=== PATIENT | female | born 1985 | race Caucasian/White ===

== ENCOUNTER 2016-06-12 15:34 | Emergency (ER) | payer BC ==
[2016-06-12 15:42] VITALS: BP 119/74; PULSE 115; TEMP 98; BMI 40.2
--- NOTE | 2016-06-12 15:43 | PDOC ---
Rapid Medical Evaluation Chief Complaint: Pain Time Seen by Provider: 06/12/16 15:39 Medical Evaluation: Allergies Allergy/AdvReac Type Severity Reaction Status Date / Time metronidazole [From Flagyl] Allergy Verified 08/20/15 00:19 shellfish derived Allergy Verified 08/20/15 00:19 06/12/16 15:41 RME Note: I have performed a brief, in-person evaluation of this patient . This patient presents with CC: Nausea and vomiting and now diarrheax 1 day with abd pain with diarrhea Pertinent PE findings are: HR= 120, no fever I have ordered: U preg, UA The patient will proceed to ED for further evaluation. ,
[2016-06-12 16:15] LABS: BASOPHIL 0.2 % (0-2.0); EOSINOPHIL 0.4 % (0-4.5); MCH 29.7 pg (25.7-33.7); MCHC 33.9 g/dl (32.0-36.0); MEAN CELL VOLUME 87.5 fl (80-96); MEAN PLT VOLUME 8.2 fl (7.5-11.1); NEUTROPHILS 81.8 % (42.8-82.8); PLATELET COUNT 332 K/MM3 (134-434); RDW 13.6 % (11.6-15.6)
[2016-06-12 17:07] LABS: ALBUMIN 3.9 g/dl (3.4-5.0); AMYLASE 49 U/L (25-115); ANION GAP 5 (8-16); BILIRUBIN,TOTAL 0.7 mg/dL (0.2-1.0); CALCIUM 9.2 mg/dL (8.5-10.1); CO2 31 mmol/L (21-32); CREATININE 0.8 mg/dL (0.55-1.02); GLUCOSE,RANDOM 84 mg/dL (74-106); SGOT/AST 9 U/L (15-37); SGPT/ALT 21 U/L (12-78); TOT PROT 7.6 g/dl (6.4-8.2)
[2016-06-12 17:08] LABS: ALK PHOS 116 U/L (45-117)
[2016-06-12] MEDS ORDERED: SODIUM CHLORIDE 2,000 ML IV STA (17:08)
[2016-06-12] MEDS ORDERED: ONDANSETRON 4 MG/2 ML VIAL IVPUSH ONE (17:14)
[2016-06-12] MEDS ORDERED: ONDANSETRON 4 MG/2 ML VIAL ONE (17:23)
--- NOTE | 2016-06-12 17:49 | PDOC ---
History of Present Illness - General History Source: Patient Exam Limitations: No Limitations - History of Present Illness Initial Comments: 06/12/16 17:50 The patient is a 30 year old female with no significant past medical history who presents to the emergency department with abdominal pain for 1 day. The patient states she started having abdominal pain after eating a fast food meal yesterday. She also reports associated nausea, vomiting, and diarrhea since yesterday. She is not able to keep anything down. She denies any blood in the vomit or diarrhea. The patient denies any chest pain or shortness of breath. She denies any recent illness, fevers, or chills. <Alysha Clark - Last Filed: 06/12/16 17:49> <Rishabh Gold - Last Filed: 06/12/16 19:11> - General Chief Complaint: Pain Stated Complaint: NAUSEA, DIARRHEA, VOMITING Time Seen by Provider: 06/12/16 15:39 Past History <Alysha Clark - Last Filed: 06/12/16 17:49> - Psycho/Social/Smoking Cessation Hx Suicidal Ideation: No Smoking History: Never smoked Information on smoking cessation initiated: No Hx Alcohol Use: No Drug/Substance Use Hx: No Substance Use Type: None <Rishabh Gold - Last Filed: 06/12/16 19:11> - Past Medical History Allergies/Adverse Reactions: Allergies Allergy/AdvReac Type Severity Reaction Status Date / Time metronidazole [From Flagyl] Allergy Verified 08/20/15 00:19 shellfish derived Allergy Verified 08/20/15 00:19 Home Medications: Ambulatory Orders Clindamycin [Cleocin -] 300 mg PO Q6HPO #30 capsule 08/20/15 Ondansetron [Zofran Odt -] 4 mg SL TID #21 od.tablet 06/12/16 Oxycodone HCl/Acetaminophen [Percocet 5-325 mg Tablet] 1 - 2 tab PO Q6H #20 tab MDD 6 06/12/16 Review of Systems - Review of Systems Able to Perform ROS?: Yes Comments:: 06/12/16 17:50 GENERAL/CONSTITUTIONAL: No fever or chills. No weakness. HEAD, EYES, EARS, NOSE AND THROAT: No change in vision. No ear pain or discharge. No sore throat. CARDIOVASCULAR: No chest pain or shortness of breath. RESPIRATORY: No cough, wheezing, or hemoptysis. GASTROINTESTINAL: +Nausea, +vomiting, +diarrhea. No constipation. GENITOURINARY: No dysuria, frequency, or change in urination. MUSCULOSKELETAL: No joint or muscle swelling or pain. No neck or back pain. SKIN: No rash NEUROLOGIC: No headache, vertigo, loss of consciousness, or change in strength/ sensation. ENDOCRINE: No increased thirst. No abnormal weight change. HEMATOLOGIC/LYMPHATIC: No anemia, easy bleeding, or history of blood clots. ALLERGIC/IMMUNOLOGIC: No hives or skin allergy. <Alysha Clark - Last Filed: 06/12/16 17:49> *Physical Exam - Vital Signs Last Vital Signs Temp Pulse Resp BP Pulse Ox 98 F 115 H 18 119/74 100 06/12/16 15:40 06/12/16 15:40 06/12/16 15:40 06/12/16 15:40 06/12/16 15:40 - Physical Exam Comments: 06/12/16 17:50 GENERAL: Awake, alert, and fully oriented, in no acute distress HEAD: No signs of trauma EYES: PERRLA, EOMI, sclera anicteric, conjunctiva clear ENT: Auricles normal inspection, hearing grossly normal, nares patent, oropharynx clear without exudates. +Dry mucosa NECK: Normal ROM, supple, no lymphadenopathy, JVD, or masses LUNGS: Breath sounds equal, clear to auscultation bilaterally. No wheezes, and no crackles HEART: Regular rate and rhythm, normal S1 and S2, no murmurs, rubs or gallops ABDOMEN: Soft, nontender, normoactive bowel sounds. No guarding, no rebound. No masses EXTREMITIES: Normal range of motion, no edema. No clubbing or cyanosis. No cords, erythema, or tenderness NEUROLOGICAL: Cranial nerves II through XII grossly intact. Normal speech, normal gait SKIN: Warm, Dry, normal turgor, no rashes or lesions noted. <Alysha Clark - Last Filed: 06/12/16 17:49> - Vital Signs Last Vital Signs Temp Pulse Resp BP Pulse Ox 98 F 115 H 18 119/74 100 06/12/16 15:40 06/12/16 15:40 06/12/16 15:40 06/12/16 15:40 06/12/16 15:40 <Rishabh Gold - Last Filed: 06/12/16 19:11> ED Treatment Course - LABORATORY CBC & Chemistry Diagram: 06/12/16 15:46 06/12/16 15:46 - ADDITIONAL ORDERS Additional order review: Laboratory Results 06/12/16 06/12/16 15:46 15:46 Sodium 139 Potassium 4.2 Chloride 103 Carbon Dioxide 31 Anion Gap 5 L BUN 19 H Creatinine 0.8 Creat Clearance w eGFR > 60 Random Glucose 84 Calcium 9.2 Total Bilirubin 0.7 D AST 9 L D ALT 21 D Alkaline Phosphatase 116 D Total Protein 7.6 Albumin 3.9 Total Amylase 49 Lipase 128 Urine HCG, Qual Negative 06/12/16 15:46 RBC 5.17 D MCV 87.5 MCHC 33.9 RDW 13.6 MPV 8.2 Neutrophils % 81.8 D Lymphocytes % 12.5 D Monocytes % 5.1 Eosinophils % 0.4 Basophils % 0.2 - Medications Given in the ED: ED Medications Discontinued Medications Generic Name Dose Route Start Last Admin Trade Name Davidq PRN Reason Stop Dose Admin Ondansetron HCl 4 mg 06/12/16 17:14 06/12/16 17:30 Zofran Injection IVPUSH 06/12/16 17:15 4 mg ONCE ONE Administration <Alysha Clark - Last Filed: 06/12/16 17:49> - LABORATORY CBC & Chemistry Diagram: 06/12/16 15:46 06/12/16 15:46 - ADDITIONAL ORDERS Additional order review: Laboratory Results 06/12/16 06/12/16 15:46 15:46 Sodium 139 Potassium 4.2 Chloride 103 Carbon Dioxide 31 Anion Gap 5 L BUN 19 H Creatinine 0.8 Creat Clearance w eGFR > 60 Random Glucose 84 Calcium 9.2 Total Bilirubin 0.7 D AST 9 L D ALT 21 D Alkaline Phosphatase 116 D Total Protein 7.6 Albumin 3.9 Total Amylase 49 Lipase 128 Urine HCG, Qual Negative 06/12/16 15:46 RBC 5.17 D MCV 87.5 MCHC 33.9 RDW 13.6 MPV 8.2 Neutrophils % 81.8 D Lymphocytes % 12.5 D Monocytes % 5.1 Eosinophils % 0.4 Basophils % 0.2 - RADIOLOGY Radiology Studies Ordered: Category Date Time Status GALLBLADDER US [US] Stat Ultrasound 06/12/16 17:14 Ordered - Medications Given in the ED: ED Medications Discontinued Medications Generic Name Dose Route Start Last Admin Trade Name Patrick PRN Reason Stop Dose Admin Ondansetron HCl 4 mg 06/12/16 17:14 06/12/16 17:30 Zofran Injection IVPUSH 06/12/16 17:15 4 mg ONCE ONE Administration <Rishabh Gold - Last Filed: 06/12/16 19:11> *DC/Admit/Observation/Transfer - Attestations Scribe Attestion: 06/12/16 17:50 Documentation prepared by Alysha Clark, acting as medical director occupational health for Rishabh Gold DO. <Alysha Clark - Last Filed: 06/12/16 17:49> - Attestations Physician Attestion: 06/12/16 17:49 I, Dr. Rishabh Gold, attest that this document has been prepared under my direction and personally reviewed by me in its entirety. I further attest, that it accurately reflects all work, treatment, procedures and medical decision -making performed by me. <Rishabh Gold - Last Filed: 06/12/16 19:11> Diagnosis at time of Disposition: Calculus of gallbladder - Discharge Dispostion Disposition: HOME Condition at time of disposition: Good - Prescriptions Prescriptions: Oxycodone HCl/Acetaminophen [Percocet 5-325 mg Tablet] 1 - 2 tab PO Q6H #20 tab MDD 6 Ondansetron [Zofran Odt -] 4 mg SL TID #21 od.tablet - Patient Instructions Printed Discharge Instructions: DI for Viral Gastroenteritis -- Adult, DI for Gallstones - Post Discharge Activity Work/School Note: Back to Work
[2016-06-12 17:54] LABS: PH,URINE 6.5 (5.0-8.0); URINE APPEARANCE CLEAR; URINE BILIRUBIN NEGATIVE (NEGATIVE); URINE BLOOD NEGATIVE (NEGATIVE); URINE COLOR LT. YELLOW; URINE GLUCOSE (UA) NEGATIVE (NEGATIVE); URINE KETONE NEGATIVE (NEGATIVE); URINE LEUK ESTERASE NEGATIVE (NEGATIVE); URINE NITRITE NEGATIVE (NEGATIVE); URINE PROTEIN NEGATIVE (NEGATIVE); URINE UROBILINOGEN 0.2 E.U/dl E.U./dl (0.2-1.0)
== END 2016-06-12 19:10 | disposition home or self-care (01) ==
LOC: JER 15:34
PROC: 3E033GC Introduction of Other Therapeutic Substance into Peripheral Vein, Percutaneous Approach (ICD-10-PCS; principal; 2016-06-12)
DX: K80.20 Calculus of gallbladder without cholecystitis without obstruction (principal)
CPT/HCPCS: 36415; 76705-TC; 80053; 81003; 82150; 83690; 84703; 85025; 99283-25

== ENCOUNTER 2019-09-19 16:54 | Emergency (ER) | payer BC ==
[2019-09-19 17:03] VITALS: BP 118/75; PULSE 114; TEMP 98.3; BMI 49.4
== END 2019-09-19 18:05 | disposition home or self-care (01) ==
LOC: JERFT 16:54
DX: T59.91XA Toxic effect of unspecified gases, fumes and vapors, accidental (unintentional), initial encounter (principal)
CPT/HCPCS: 82375; 99284-25

== ENCOUNTER 2019-12-15 04:08 | Emergency (ER) | payer BC ==
[2019-12-15 04:18] VITALS: BMI 52.1
[2019-12-15] MEDS ORDERED: morphine CARPU-JECT 4 MG/1 ML DISP.SYRIN IVPUSH ONE (04:31)
[2019-12-15] MEDS ORDERED: ONDANSETRON 4 MG/2 ML VIAL IVPUSH ONE (04:31)
[2019-12-15] MEDS ORDERED: SODIUM CHLORIDE 0.9% 500 ML INFUS.BAG IV ONE (04:32)
[2019-12-15] MEDS ORDERED: morphine SULFATE 4 MG/ML VIAL ONE (04:35)
[2019-12-15] MEDS ORDERED: KETOROLAC TROMETHAMINE 15 MG/ML VIAL IM ONE (04:43)
--- NOTE | 2019-12-15 04:43 | PDOC ---
History of Present Illness - General Chief Complaint: Pain Stated Complaint: VOMITING,PAIN Time Seen by Provider: 12/15/19 04:17 - History of Present Illness Initial Comments: 12/15/19 04:33 HPI 34y/o F hx of asthma, IBS, kidney stones s/p right ureteral stent placement yesterday, presents to the ED with persistent nausea and vomiting. Pt had nausea while at hospital and was given zofran while in the hospital, and discharged with pain medications. Pt reports nausea has been persistent since then, and she has been unable to take her percocet because of the vomiting. She endorses: right flank pain, hematuria (as expected after procedure) denies: fevers, chills, chest pain, shortness of breath, lightheadedness, PMHx: as noted above ROS: as noted SHx: Denies Etoh, IVDA, tobacco use Allergies: NKDA ROS: GENERAL/CONSTITUTIONAL: No fever or chills. No weakness. HEAD, EYES, EARS, NOSE AND THROAT: No change in vision. No ear pain or discharge. No sore throat. CARDIOVASCULAR: No chest pain or shortness of breath RESPIRATORY: No cough, wheezing, or hemoptysis. GASTROINTESTINAL: No nausea, vomiting, diarrhea or constipation. GENITOURINARY: No dysuria, frequency, or change in urination. MUSCULOSKELETAL: No joint or muscle swelling or pain. No neck or back pain. SKIN: No rash NEUROLOGIC: No headache, vertigo, loss of consciousness, or change in strength/sensation. ENDOCRINE: No increased thirst. No abnormal weight change HEMATOLOGIC/LYMPHATIC: No anemia, easy bleeding, or history of blood clots. ALLERGIC/IMMUNOLOGIC: No hives or skin allergy. PE: GENERAL: Awake, alert, and fully oriented, in no acute distress HEAD: No signs of trauma, normocephalic, atraumatic EYES: PERRLA, EOMI, sclera anicteric, conjunctiva clear ENT: Auricles normal inspection, hearing grossly normal, nares patent, oropharynx clear without exudates. Moist mucosa NECK: Normal ROM, supple, no lymphadenopathy, JVD, or masses LUNGS: No distress, speaks full sentences, clear to auscultation bilaterally HEART: Regular rate and rhythm, normal S1 and S2, no murmurs, rubs or gallops, peripheral pulses normal and equal bilaterally. ABDOMEN: Soft,right flank pain. normoactive bowel sounds. No guarding, no r ebound. No masses EXTREMITIES : Normal inspection, Normal range of motion, no edema. No clubbing or cyanosis NEUROLOGICAL: Cranial nerves II through XII grossly intact. Normal speech, normal gait, no focal sensorimotor deficits SKIN: Warm, Dry, normal turgor, no rashes or lesions noted MDM 34y/o F hx of asthma, IBS, kidney stones s/p right ureteral stent placement yesterday, presents to the ED with persistent nausea and vomiting. DDx including but not limited to: nausea secondary to stent placement. Workup: basic labs, kub [place]: zofran, toradol, iv fluids u preg negative labs unremarkable KUB pending pt feeling better after toradol. not actively vomiting in the ED. ED course urology consult: dr. coffman covering for dr. luna: kub, fluids, anti-emetics. follow up with them upon d/c pt signed out to dr. oliveira. Past History - Medical History Allergies/Adverse Reactions: Allergies Allergy/AdvReac Type Severity Reaction Status Date / Time adhesive tape Allergy Verified 12/15/19 04:18 metronidazole [From Flagyl] Allergy Verified 12/15/19 04:18 shellfish derived Allergy Verified 12/15/19 04:18 Home Medications: Ambulatory Orders Clindamycin [Cleocin -] 300 mg PO Q6HPO #30 capsule 08/20/15 Ondansetron [Zofran Odt -] 4 mg SL TID #21 od.tablet 06/12/16 Oxycodone HCl/Acetaminophen [Percocet 5-325 mg Tablet] 1 - 2 tab PO Q6H #20 tab MDD 6 06/12/16 Ondansetron [Zofran *Odt*] 4 mg SL Q4H PRN #24 od.tablet 12/15/19 COPD: No - Surgical History Cholecystectomy: Yes - Reproductive History Is Patient Now?: No - Psycho-Social/Smoking History Smoking History: Never smoked Have you smoked in the past 12 months: No Information on smoking cessation initiated: No - Substance Abuse Hx (Audit-C & DAST Scrn) How often the patient has a drink containing alcohol: Never Score: In Men: 4 or > Positive; In Women: 3 or > Positive: 0 Screen Result (Pos requires Nsg. Audit-10AR): Negative In the last yr the pt used illegal drug/Rx for NonMed reason: No Score: Yes response is considered Positive: 0 Screen Result (Positive result requires Nsg. DAST-10): Negative *Physical Exam - Vital Signs Last Vital Signs Temp Pulse Resp BP Pulse Ox 107 H 20 116/61 99 12/15/19 04:11 12/15/19 04:11 12/15/19 04:11 12/15/19 04:11 ED Treatment Course - LABORATORY CBC & Chemistry Diagram: 12/15/19 04:35 12/15/19 04:35 - RADIOLOGY Radiology Studies Ordered: Category Date Time Status KUB (KID UR & BLAD) [RAD] Stat Radiology 12/15/19 04:31 Ordered Discharge - Discharge Information Problems reviewed: Yes Clinical Impression/Diagnosis: Vomiting Qualifiers: Vomiting type: unspecified Vomiting Intractability: unspecified Nausea presence: with nausea Qualified Code(s): R11.2 - Nausea with vomiting, unspeci fied Condition: Improved Disposition: HOME - Additional Discharge Information Prescriptions: Ondansetron [Zofran *Odt*] 4 mg SL Q4H PRN #24 od.tablet PRN Reason: nausea - Follow up/Referral - Patient Discharge Instructions Patient Printed Discharge Instructions: Nausea and Vomiting-Adult, DI for Ureteral Stent Placement Additional Instructions: it is common to have blood in the urine after your procedure. It may be pink or red. If you have significant amount of clots in urine, difficulty urinating or inability to urinate inform your doctor immediately. Drink plenty of water. Do not perform strenuous activities until you are cleared by your doctor. follow up with your urologist Dr. Gamez after your discharge. take the medication prescribed to you as indicated. - Post Discharge Activity
[2019-12-15 04:45] LABS: BASO % 0.1 % (0-2.0); EOS % 0.2 % (0-4.5); HEMATOCRIT 42.3 % (32.4-45.2); HEMOGLOBIN 14.6 GM/dL (10.7-15.3); LYMPH % 6.6 % (8-40); MCH 30.4 pg (25.7-33.7); MCHC 34.5 g/dl (32.0-36.0); MEAN CELL VOLUME 88.3 fl (80-96); MEAN PLT VOLUME 8.5 fl (7.5-11.1); MONO % 3.1 % (3.8-10.2); PLATELET COUNT 362 K/MM3 (134-434); RBC 4.79 M/mm3 (3.60-5.2); RDW 13.6 % (11.6-15.6); WHITE BLOOD COUNT 11.6 K/mm3 (4.0-10.0)
[2019-12-15] MEDS ORDERED: KETOROLAC TROMETHAMINE 15 MG/ML VIAL ONE (04:45)
[2019-12-15] MEDS ORDERED: KETOROLAC TROMETHAMINE 30 MG/1 ML VIAL IVPUSH ONE (04:45)
--- NOTE | 2019-12-15 04:52 | PDOC ---
Attending Attestation - Resident Resident Name: EsequielToanGarciaOnelbre - ED Attending Attestation I have performed the following: I have examined & evaluated the patient, The case was reviewed & discussed with the resident, I agree w/resident's findings & plan, Exceptions are as noted - HPI HPI: 12/15/19 04:45 34 yo F h/o R ureteral stent placed ~12 hours prior to presentation p/w n/v since the procedure. [facility] and reports she was discharged in the evening after her nausea and vomiting improved. States shortly after she returned home the n/v returned and since has not been able to tolerate PO. Reports she is urinating normally but still has small amount of blood in the urine which she was told was normal. - Physicial Exam PE: 12/15/19 04:47 General: well appearing Abdomen: obese limiting exam, soft, nt, no rebound no guarding Back: mild R CVA tenderness - Medical Decision Making 12/15/19 04:49 34 yo F with vomiting s/p ureteral stent placement. Case discussed with patient's covering urologist who suspects normal post-op reaction and recommends KUB to confirm stent placement, IVF, pain control and antiemetic and patient can f/u with urologist upon discharge from the ED. Plan: -KUB -IVF -pain control as needed -zofran -reassess, if patient tolerating PO and stent does not appear to be misplaced on KUB will d/c and patient to f/u with after discharge This clinical encounter is taking place during a federal and state health care emergency attributable to the novel [place] Virus pandemic. The [employer] of the Department of Health and Human Services has declared, pursuant to the Public Health Service Act 319F-3 (42 U.S[place]C. 247d-6d), that a covered persons activities related to medical countermeasures against COVID-19 will be immune from liability under Federal and State law. Discharge - Discharge Information Problems reviewed: Yes Clinical Impression/Diagnosis: Vomiting Qualifiers: Vomiting type: unspecified Vomiting Intractability: unspecified Nausea presence: with nausea Qualified Code(s): R11.2 - Nausea with vomiting, unspecified Condition: Improved Disposition: HOME - Additional Discharge Information Prescriptions: Ondansetron [Zofran *Odt*] 4 mg SL Q4H PRN #24 od.tablet PRN Reason: nausea - Follow up/Referral - Patient Discharge Instructions Patient Printed Discharge Instructions: Nausea and Vomiting-Adult, DI for Ur eteral Stent Placement Additional Instructions: it is common to have blood in the urine after your procedure. It may be pink or red. If you have significant amount of clots in urine, difficulty urinating or inability to urinate inform your doctor immediately. Drink plenty of water. Do not perform strenuous activities until you are cleared by your doctor. follow up with your urologist Dr. Gamez after your discharge. take the medication prescribed to you as indicated. - Post Discharge Activity
[2019-12-15 05:15] LABS: BLOOD UREA NITROGEN 15.2 mg/dL (7-18); CALCIUM 9.7 mg/dL (8.5-10.1); CREATININE 0.8 mg/dL (0.55-1.3); POTASSIUM 4.6 mmol/L (3.5-5.1)
--- NOTE | 2019-12-15 07:52 | PDOC ---
*Physical Exam - Vital Signs Last Vital Signs Temp Pulse Resp BP Pulse Ox 98.6 F 107 H 20 116/61 99 12/15/19 04:11 12/15/19 04:11 12/15/19 04:11 12/15/19 04:11 12/15/19 04:11 - Physical Exam 12/15/19 07:51 Accepted patient from night team at sign out. Comfortable in bed, not in pain, no nausea, tolerating PO. Dispo pending KUB results KUB: 2 views of the abdomen reveal a nonspecific bowel pattern. There is a right ureteral stent with proximal end in the right renal pelvis and distal end in the bladder. The right upper quadrant clips. Free air or pneumatosis is not seen. There is no sign of organomegaly or calcifications of significance. Correlation recommended. Repeat HR 95. Patient states she "runs tachy" and normal for her is in 100s DC home. She will call her surgeon today for f/u 12/15/19 08:10 12/15/19 08:12 ED Treatment Course - LABORATORY CBC & Chemistry Diagram: 12/15/19 04:35 12/15/19 04:35 - ADDITIONAL ORDERS Additional order review: Laboratory Results 12/15/19 12/15/19 05:48 04:35 Sodium 135 L Potassium 4.6 Chloride 102 Carbon Dioxide 25 Anion Gap 8 BUN 15.2 Creatinine 0.8 Est GFR (CKD-EPI)AfAm 112.27 Est GFR (CKD-EPI)NonAf 96.87 Random Glucose 110 H Calcium 9.7 Serum , Qual Negative 12/15/19 04:35 RBC 4.79 MCV 88.3 MCHC 34.5 RDW 13.6 MPV 8.5 Neutrophils % 90.0 H Lymphocytes % 6.6 L D Monocytes % 3.1 L Eosinophils % 0.2 Basophils % 0.1 - Medications Given in the ED: ED Medications Discontinued Medications Generic Name Dose Route Start Last Admin Trade Name Freq PRN Reason Stop Dose Admin Ketorolac Tromethamine 15 mg 12/15/19 04:43 12/15/19 04:46 Toradol Injection - IM 12/15/19 04:44 Not Given ONCE ONE Ketorolac Tromethamine 15 mg 12/15/19 04:45 12/15/19 04:50 Toradol Injection - IVPUSH 12/15/19 04:46 15 mg ONCE ONE Administration Morphine Sulfate 4 mg 12/15/19 04:31 12/15/19 04:44 Morphine Injection - IVPUSH 12/15/19 04:32 Not Given ONCE ONE Ondansetron HCl 4 mg 12/15/19 04:31 12/15/19 04:43 Zofran Injection IVPUSH 12/15/19 04:32 4 mg ONCE ONE Administration Sodium Chloride 1,000 ml 12/15/19 04:32 12/15/19 04:43 Normal Saline - IV 12/15/19 04:33 1,000 ml ONCE ONE Administration Discharge - Discharge Information Problems reviewed: Yes Clinical Impression/Diagnosis: Vomiting Qualifiers: Vomiting type: unspecified Vomiting Intractability: unspecified Nausea presence: with nausea Qualified Code(s): R11.2 - Nausea with vomiting, unspecified - Additional Discharge Information Prescriptions: Ondansetron [Zofran *Odt*] 4 mg SL Q4H PRN #24 od.tablet PRN Reason: nausea - Follow up/Referral - Patient Discharge Instructions Patient Printed Discharge Instructions: Nausea and Vomiting-Adult, DI for Ure teral Stent Placement Additional Instructions: it is common to have blood in the urine after your procedure. It may be pink or red. If you have significant amount of clots in urine, difficulty urinating or inability to urinate inform your doctor immediately. Drink plenty of water. Do not perform strenuous activities until you are cleared by your doctor. follow up with your urologist Dr. Gamez after your discharge. take the medication prescribed to you as indicated. - Post Discharge Activity
[2019-12-15 08:21] VITALS: BP 124/73; PULSE 95; TEMP 98.4
== END 2019-12-15 08:24 | disposition home or self-care (01) ==
LOC: JER 04:08
PROC: 3E0333Z Introduction of Anti-inflammatory into Peripheral Vein, Percutaneous Approach (ICD-10-PCS; principal; 2019-12-15)
PROC: 3E033GC Introduction of Other Therapeutic Substance into Peripheral Vein, Percutaneous Approach (ICD-10-PCS; 2019-12-15)
DX: R11.2 Nausea with vomiting, unspecified (principal)
CPT/HCPCS: 36415; 74018-TC-FY; 80048; 84703; 85025; 99284-25

== ENCOUNTER 2020-02-17 21:16 | Emergency (ER) | payer BC ==
[2020-02-17 21:23] VITALS: BP 138/76; PULSE 117; TEMP 98; BMI 51.2
[2020-02-17] MEDS ORDERED: AZITHROMYCIN 500 MG TABLET PO ONE (22:05)
[2020-02-17] MEDS ORDERED: AZITHROMYCIN 250 MG TABLET ONE (22:12)
[2020-02-17 22:15] LABS: URINE BILIRUBIN NEGATIVE (NEGATIVE); URINE COLOR YELLOW; URINE GLUCOSE (UA) NEGATIVE (NEGATIVE); URINE KETONE NEGATIVE (NEGATIVE); URINE LEUK ESTERASE NEGATIVE (NEGATIVE); URINE NITRITE NEGATIVE (NEGATIVE); URINE PROTEIN NEGATIVE (NEGATIVE); URINE UROBILINOGEN 0.2 mg/dL (0.2-1.0)
[2020-02-17] MEDS ORDERED: LIDOCAINE HCL 1%, 10 MG/ML (20ML VIAL) ONE (22:15)
[2020-02-17 23:15] LABS: HCG,QUALITATIVE URINE NEGATIVE
[2020-02-17 23:25] LABS: URINE APPEARANCE TURBID
[2020-02-17 23:47] LABS: HIV INTERPRETATION NEGATIVE (NEGATIVE)
== END 2020-02-17 23:00 | disposition home or self-care (01) ==
LOC: JERFT 21:16
DX: Z20.2 Contact with and (suspected) exposure to infections with a predominantly sexual mode of transmission (principal)
CPT/HCPCS: 36415; 81003; 84703; 86780; 87070; 87086; 87205; 87389; 87491; 87529; 87591; 99284-25

== ENCOUNTER 2021-12-25 23:46 | Emergency (ER) | payer BC ==
[2021-12-25 23:59] VITALS: BP 132/86; BMI 54.8
[2021-12-26] MEDS ORDERED: ACETAMINOPHEN 500 MG TABLET (FP) PO ONE (00:43)
[2021-12-26] MEDS ORDERED: IBUPROFEN 600 MG TABLET (FP) PO ONE ×2 (00:43→00:48)
[2021-12-26] MEDS ORDERED: ACETAMINOPHEN 325 MG TABLET (FP) ONE (00:48)
[2021-12-26 01:36] VITALS: RESP 20; TEMP 99.8
[2021-12-26 02:13] VITALS: PULSE 110
== END 2021-12-26 03:12 | disposition home or self-care (01) ==
LOC: JER 23:46
DX: U07.1 COVID-19 (principal)
CPT/HCPCS: 71046-TC-FY; 93005; 93010; 99284-25